=== PATIENT | female | born 1990 | race Two or more races ===

== ENCOUNTER 2019-10-13 09:38 | Emergency (ER) | payer SELFPAY ==
[~2019-10-13] VITALS: Ht 137.2 cm; Wt 59.0 kg
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
--- NOTE | 2019-10-13 10:02 | NUR ---
DR BURGER AT BEDSIDE
[2019-10-13] MEDS ORDERED: HYDROCODONE/APAP 5/325MG 1 EACH TABLET ONE (10:25)
[2019-10-13] MEDS ORDERED: HYDROCODONE/APAP 5/325MG 1 EACH TABLET PO ONE (10:30)
[2019-10-13] MEDS ORDERED: LIDOCAINE HCL/MPF 1% 30 ML VIAL IJ ONE (11:52)
[2019-10-13] MEDS ORDERED: LIDOCAINE 1% INJ 50 ML MDV IJ ONE (12:00)
--- NOTE | 2019-10-13 12:58 | NUR ---
DR BURGER AT BEDSIDE FOR NUMBING OF L THUMB
[2019-10-13] MEDS ORDERED: TDAP [DIPH/PERTUSSIS/TET] 0.5 ML VIAL IM ONE ×2 (13:14→13:30)
--- NOTE | 2019-10-13 13:19 | NUR ---
THUMB SPICA APPLIED BY TECH
--- NOTE | 2019-10-13 13:44 | NUR ---
Patient discharged to home in stable condition. Written and verbal after care instructions given. Patient verbalizes understanding of instruction.
[2019-10-13 13:45] VITALS: BP 121/62
== END 2019-10-13 13:46 | disposition home or self-care (01) ==
LOC: ER 09:38
DX: S62.522A Displaced fracture of distal phalanx of left thumb, initial encounter for closed fracture (principal); W22.8XXA Striking against or struck by other objects, initial encounter; Y93.89 Activity, other specified; Y92.89 Other specified places as the place of occurrence of the external cause; Y99.8 Other external cause status
CPT/HCPCS: 29130; 64400; 73130; 90471; 90715; 99284; A6403; J3490